=== PATIENT | female | born 1975 | race Caucasian/White ===

== ENCOUNTER → 2016-05-08 | Outpatient (CLI) | payer BC ==
[2016-05-08 17:22] LABS: ALT/SGPT 23 U/L (12-78); BLOOD UREA NITROGEN 11 mg/dl (7-18); BUN/CREATININE RATIO 11.4 (10-20); CALCIUM 9.3 mg/dl (8.5-10.1); CARBON DIOXIDE 26 mmol/L (21-32); CHLORIDE 105 mmol/L (98-107); CHOLESTEROL 171 mg/dl (0-200); CREATININE 0.94 mg/dl (0.60-1.20); GLUCOSE 86 mg/dl (70-99); POTASSIUM 4.1 mmol/L (3.5-5.1); SODIUM 140 mmol/L (136-145); TRIGLYCERIDES 60 mg/dl (0-150); VERY LOW DENSITY LIPOPROT CALC 12 mg/dl
[2016-05-08 17:37] LABS: ALB/GLOB RATIO 1.2 (0.9-2); ALKALINE PHOSPHATASE 78 U/L (45-117); AST/SGOT 15 U/L (15-37); CHOLESTEROL/HDL RATIO 2.4; HDL CHOLESTEROL 72 mg/dl; LDL CHOLESTEROL CALCULATED 87 mg/dl
== END | disposition home or self-care (01) ==
LOC: C.LABBC 12:01
PROVIDERS: ATTEND Internal Medicine
DX: E03.9 Hypothyroidism, unspecified (principal)

== ENCOUNTER → 2016-08-11 | Outpatient (CLI) | payer BC ==
[2016-08-11 11:41] LABS: THYROID STIMULATING HORMONE 2.47 uIu/ml (0.300-4.500)
== END | disposition home or self-care (01) ==
LOC: C.LABBC 08:21
PROVIDERS: ATTEND Physician Assistant Medical
DX: R53.83 Other fatigue (principal); R63.5 Abnormal weight gain

== ENCOUNTER → 2016-08-13 | Outpatient (CLI) | payer BC ==
--- NOTE | 2016-08-13 09:07 | MAMMOGRAPHY REPORT ---
BILATERAL DIGITAL SCREENING MAMMOGRAM TOMOSYNTHESIS WITH CAD: 08/13/2016 CLINICAL HISTORY: Routine screening. Patient has no complaints. TECHNIQUE: Breast tomosynthesis in addition to standard 2D mammography was performed. Current study was also evaluated with a Computer Aided Detection (CAD) system. COMPARISON: Comparison is made to exam dated: 04/29/2015 mammogram - [facility]. BREAST COMPOSITION: There are scattered areas of fibroglandular density in both breasts. FINDINGS: No suspicious masses, calcifications, or areas of architectural distortion are noted in ei ther breast. There has been no significant interval change compared to prior exams. IMPRESSION: ACR BI-RADS CATEGORY 1: NEGATIVE There is no mammographic evidence of malignancy. A 1 year screening mammogram is recommended. The pa tient will receive written notification of the results. Approximately 10% of breast cancers are not detected with mammography. A negative mammographic report should not delay biopsy if a clinically suggestive mass is present. Dione Merino M.D. ah/:08/13/2016 07:45:24 [employer] Teacher: Nancy SLOANR, M, [facility] letter sent: Normal 1/2 BI-RADS Code: ACR BI-RADS Category 1: Negative
== END | disposition home or self-care (01) ==
LOC: C.MAMM 07:08
PROVIDERS: ATTEND Obstetrics & Gynecology
DX: Z12.31 Encounter for screening mammogram for malignant neoplasm of breast (principal)

== ENCOUNTER → 2016-11-12 | Outpatient (CLI) | payer BC | END | disposition home or self-care (01) | LOC: C.PAPS 09:20 | PROVIDERS: ATTEND Obstetrics & Gynecology | DX: Z01.419 Encounter for gynecological examination (general) (routine) without abnormal findings (principal) ==

== ENCOUNTER → 2017-02-11 | Outpatient (CLI) | payer BC ==
[2017-02-11 11:24] LABS: THYROID STIMULATING HORMONE 3.38 uIu/ml (0.300-4.500)
== END | disposition home or self-care (01) ==
LOC: C.LABBC 08:48
PROVIDERS: ATTEND Physician Assistant Medical
DX: E03.9 Hypothyroidism, unspecified (principal)

== ENCOUNTER → 2017-04-30 | Outpatient (CLI) | payer OTHER | END | disposition home or self-care (01) | LOC: C.LABBC 08:07 | PROVIDERS: ATTEND Physician Assistant Medical | DX: E03.9 Hypothyroidism, unspecified (principal) ==